=== PATIENT | female | born 1965 | race Caucasian/White ===

== ENCOUNTER 2017-07-11 12:03 | Emergency (ER) | payer SELFPAY ==
[~2017-07-11] VITALS: Ht 165.1 cm; Wt 80.0 kg
[2017-07-11 12:07] VITALS: BP 136/82; PULSE 107; RESP 22; O2SAT 99
--- NOTE | 2017-07-11 12:09 | ED.REPORT ---
HPI-Abd Pain F 40 and Over Date of Service Jul 11, 2017 ED Provider: History of Present Illness: possible bladder infection. hurts with urination for 2 weeks. no primary care. chronic back pain. denies nausea or vomiting, frequency and urgency also Nursing Notes Stated Complaint: UTI PAIN Chief Complaint: Female Abdominal Pain Nursing Notes Reviewed: Yes Allergies: Coded Allergies: No Known Allergies (Verified , 07/11/17) General Time Seen by MD: 12:08 Chief Complaint Abdominal pain Hx Obtained From: Patient Sudden in Onset?: No Symptom Duration: Since onset Past Medical History Past Medical History None Denies: Asthma, Diabetes mellitus, Hypertension Past Surgical History shoulders both, knee times 2 Reports: Tubal ligation (at [facility]) Family History Noncontributory Smoking History Never Smoker Social History 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, 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 per her report Alcohol Use: Denies alcohol use Drug Use: THC Occupation lives by self, no work or school 07/11/2017 Ambulatory Status Independent Review of Systems Basic Review of Systems Eyes: Vision NL, No discharge Skin: No bruising, No rash, No itch Psychiatric: Normal thought content Physical Exam Vital Signs Vital Signs (First) Date Time Temp Pulse Resp B/P Pulse Ox O2 Delivery O2 Flow Rate FiO2 07/11/17 12:07 36.6 107 22 136/82 99 07/11/17 14:01 Room Air Initial VS: Reviewed, Vital signs abnormal Head / Eyes: Atraumatic, Normocephalic, PERRL Skin: Warm, Dry, No cyanosis Psychiatric: Mood/affect normal, Behavior normal, Normal thought content General/Constitutional: Awake, Alert, No acute distress, Well appearing, Well developed, Well hydrated, Well nourished, Cooperative, Not toxic appearing Respiratory / Chest: Atraumatic, Breath sounds NL, Breath sounds = bilat, No respiratory distress, No rales, No rhonchi, No wheezing, No retractions Cardiovascular: Heart rate NL, Regular rhythm, Heart sounds NL, No gallop, No murmurs, No rubs, Cap refill not delayed Abdomen: Atraumatic, Soft, Non-tender, McBurney's non-tender Back: Atraumatic, Inspection NL, Full range of motion patient with chronic back pain, denies any new pain ENT: Atraumatic, Airway patent, Mucous membranes moist, Pharynx NL Interpretation & Diagnostics Lab Results Interpretation Test 07/11/17 12:15 Urine Color Yellow (YELLOW) Urine Appearance Cloudy (CLEAR,HAZY) Urine pH 6.0 (5.0-8.0) Urine Specific [place] 1.011 (1.003-1.035) Urine Protein 30mg/dL (NEG,TRACE) Urine Glucose (UA) Negativemg/dL (NEGATIVE) Urine Ketones Negativemg/dL (NEGATIVE) Urine Occult Blood Small (NEGATIVE) Urine Nitrite Positive (NEGATIVE) Urine Bilirubin Negative (NEGATIVE) Urine Urobilinogen Normalmg/dL (NORMAL) Urine Leukocyte Esterase Large (NEGATIVE) Urine RBC 0-2/hpf (0-2) Urine WBC Packed/hpf (0-5) Urine Epithelial Cells Few/hpf (NONE-MOD) Urine Crystals None seen (NONE SEEN) Urine Bacteria Many/hpf (NONE-FEW) Urine Hyaline Casts None/lpf (NONE) Urine Granular Casts None seen (NONE SEEN) Urine Waxy Casts None seen (NONE SEEN) Urine Red Blood Cell Casts None seen (NONE SEEN) Urine White Blood Cell Casts None seen (NONE SEEN) Urine Mucus None seen (None Seen) Urine Trichomonas None seen (NONE SEEN) Urine Yeast None (NONE SEEN) Urinalysis Comment None Urine Culture Reflexed Indicated Lab Results Interpretation: urine with positive nitrates Re-Eval/Medical Decision Med Decision/Clinical Course 51 year old female presents for evualation of possible bladder infection. Paitent with frequency, urgency and dsyuria. Urine is positive for nitrates. Denies nausea or vomiting. No sign of pyelonephritis or trauma Discharge & Departure Primary Impression: Urinary tract infection Urinary tract infection type: acute cystitis Hematuria presence: with hematuria Qualified Code: N30.01 - Acute cystitis with hematuria Disposition: Home Patient Instructions: Urinary Tract Infection in Women (ED) Additional Instructions: The urine indicates an infection. Start bactrim in the am and pm for 7 days. Use pyridium 200 mg 3 times a day for 2 days. Push lots of fluid. Follow with Dr. Tejada for a recheck. Return with any concerns. Referrals: Harrison Tejada MD (PCP) EDSupervising Provider for APC: Dilip Covington MD copies to: Harrison Tejada MD, Sue ARNP Jul 11, 2017 12:09
[2017-07-11] MEDS ORDERED: Trimethoprim-Sulfa 160 mg-800 mg Tablet PO ONE (12:20)
[2017-07-11] MEDS ORDERED: Phenazopyridine 97.5 mg Tablet PO ONE (12:20)
[2017-07-11 12:45] LABS: APPEARANCE,URINE CLOUDY (CLEAR,HAZY); COLOR,URINE YELLOW (YELLOW); OCCULT BLOOD,URINE SMALL (NEGATIVE); UROBILINOGEN,URINE NORMAL (NORMAL)
[2017-07-11 14:01] VITALS: BP 137/87; PULSE 100; O2SAT 100
== END 2017-07-11 14:03 | disposition home or self-care (01) ==
LOC: SED 12:03
DX: N30.01 Acute cystitis with hematuria (principal); B96.20 Unspecified Escherichia coli [E. coli] as the cause of diseases classified elsewhere